=== PATIENT | female | born 1935 | race Caucasian/White ===

== ENCOUNTER → 2017-01-05 | Outpatient (CLI) | payer MEDICARE, OTHER ==
--- NOTE | 2017-01-05 12:00 | REP ---
RIGHT HIP SERIES: Two views of the right hip are performed. There is no acute fracture or dislocation. There is mild degenerative change in the form of mild joint space narrowing, subchondral sclerosis and spurring. IMPRESSION: Mild degenerative changes. Signed by Dipak Holley MD 01/05/2017 12:54 P
== END ==
LOC: M ADAMS 10:09
PROVIDERS: ATTEND Family Medicine
DX: M16.51 Unilateral post-traumatic osteoarthritis, right hip (principal); M25.551 Pain in right hip
CPT/HCPCS: 73502; G0463

== ENCOUNTER → 2017-04-30 | Outpatient (REF) | payer MEDICARE, OTHER ==
[2017-04-30 13:44] LABS: MEAN CORPUSCULAR HEMOGLOBIN 30.6 pg (27.0-33.0); MEAN CORPUSCULAR HGB CONC 32.8 g/dl (32.0-36.5); MEAN CORPUSCULAR VOLUME 93.1 fl (80.0-96.0); RED CELL DISTRIBUTION WIDTH 13.7 % (11.5-14.5); WHITE BLOOD COUNT 8.9 10^3/uL (4.0-10.0)
[2017-04-30 13:57] LABS: CALCIUM LEVEL 9.3 MG/DL (8.8-10.2); CREATININE FOR GFR 1.24 MG/DL (0.55-1.02); GLOMERULAR FILTRATION RATE 44.1 (>32); POTASSIUM SERUM 4.6 MEQ/L (3.5-5.1)
== END ==
LOC: M LABDRWAD 12:41
PROVIDERS: ATTEND Nurse Practitioner Family
DX: I10 Essential (primary) hypertension (principal); I48.2 Chronic atrial fibrillation

== ENCOUNTER 2017-08-16 19:19 | Emergency (ER) | payer MEDICARE, OTHER ==
[2017-08-16] MEDS: LIDOCAINE 4% CREAM 5GM (LMX4) TOP (23:01)
== END 2017-08-17 01:50 | disposition home or self-care (01) ==
LOC: M ED 08-17 01:50
DX: K56.41 Fecal impaction (principal); K64.4 Residual hemorrhoidal skin tags; I48.91 Unspecified atrial fibrillation; I10 Essential (primary) hypertension; J45.909 Unspecified asthma, uncomplicated; Z79.51 Long term (current) use of inhaled steroids; Z79.899 Other long term (current) drug therapy; Z88.8 Allergy status to other drugs, medicaments and biological substances; Z88.0 Allergy status to penicillin; Z98.890 Other specified postprocedural states
CPT/HCPCS: 99284

== ENCOUNTER → 2017-11-15 | Outpatient (REF) | payer MEDICARE, OTHER ==
[2017-11-15 12:42] LABS: BASO # 0.1 10^3/uL (0.0-0.2); BASO % 0.6 % (0.0-1.0); EOS # 0.4 10^3/uL (0.0-0.50); HEMATOCRIT 41.2 % (36.0-47.0); HEMOGLOBIN 13.4 g/dl (12.0-15.5); IMMATURE GRANULOCYTE % 0.3 % (0-3.0); LYMPH % 18.1 % (24.0-44.0); MEAN CORPUSCULAR HEMOGLOBIN 30.5 pg (27.0-33.0); MEAN CORPUSCULAR HGB CONC 32.5 g/dl (32.0-36.5); MEAN CORPUSCULAR VOLUME 93.8 fl (80.0-96.0); MONO % 8.6 % (0.0-5.0); NEUTROPHILS # 7.6 10^3/uL (1.8-7.7); NEUTROPHILS % 68.4 % (36.0-66.0); PLATELET COUNT, AUTOMATED 348 10^3/uL (150-450); RED BLOOD COUNT 4.39 10^6/uL (4.00-5.40); RED CELL DISTRIBUTION WIDTH 13.3 % (11.5-14.5)
== END ==
LOC: M LABDRWAD 12:22
DX: I48.2 Chronic atrial fibrillation (principal)
CPT/HCPCS: 85025

== ENCOUNTER → 2018-01-20 | Outpatient (REF) | payer MEDICARE, OTHER ==
[2018-01-20 13:01] LABS: ALBUMIN 3.7 GM/DL (3.2-5.2); ALBUMIN/GLOBULIN RATIO 1.12 (1.00-1.93); ALKALINE PHOSPHATASE 80 U/L (45-117); ALT/SGPT 21 U/L (12-78); ANION GAP 8 MEQ/L (8-16); AST/SGOT 14 U/L (7-37); BILIRUBIN,TOTAL 0.4 MG/DL (0.2-1.0); BLOOD UREA NITROGEN 25 MG/DL (7-18); CALCIUM LEVEL 8.9 MG/DL (8.8-10.2); CARBON DIOXIDE LEVEL 30 MEQ/L (21-32); CHLORIDE LEVEL 106 MEQ/L (98-107); CREATININE FOR GFR 1.31 MG/DL (0.55-1.30); GLOMERULAR FILTRATION RATE 41.4 (>32); GLUCOSE, FASTING 109 MG/DL (70-100); POTASSIUM SERUM 4.7 MEQ/L (3.5-5.1); SODIUM LEVEL 144 MEQ/L (136-145)
== END ==
LOC: M LAB REF 12:14
DX: I48.2 Chronic atrial fibrillation (principal)
CPT/HCPCS: 80053

== ENCOUNTER → 2018-05-03 | Outpatient (REF) | payer MEDICARE, OTHER ==
[2018-05-03 13:18] LABS: HEMATOCRIT 40.2 % (36.0-47.0); HEMOGLOBIN 13.3 g/dl (12.0-15.5); MEAN CORPUSCULAR HEMOGLOBIN 30.6 pg (27.0-33.0); MEAN CORPUSCULAR HGB CONC 33.1 g/dl (32.0-36.5); MEAN CORPUSCULAR VOLUME 92.6 fl (80.0-96.0); PLATELET COUNT, AUTOMATED 260 10^3/uL (150-450); RED BLOOD COUNT 4.34 10^6/uL (4.00-5.40); RED CELL DISTRIBUTION WIDTH 13.2 % (11.5-14.5); WHITE BLOOD COUNT 8.7 10^3/uL (4.0-10.0)
[2018-05-03 13:36] LABS: ALBUMIN 4.1 GM/DL (3.2-5.2); ALBUMIN/GLOBULIN RATIO 1.28 (1.00-1.93); ALKALINE PHOSPHATASE 73 U/L (45-117); ALT/SGPT 23 U/L (12-78); ANION GAP 9 MEQ/L (8-16); AST/SGOT 18 U/L (7-37); BILIRUBIN,TOTAL 0.4 MG/DL (0.2-1.0); BLOOD UREA NITROGEN 23 MG/DL (7-18); CALCIUM LEVEL 9.9 MG/DL (8.8-10.2); CARBON DIOXIDE LEVEL 29 MEQ/L (21-32); CHLORIDE LEVEL 103 MEQ/L (98-107); CHOLESTEROL LEVEL 172 MG/DL (<200); CREATININE FOR GFR 1.24 MG/DL (0.55-1.30); FREE T4 1.09 NG/DL (0.76-1.46); GLUCOSE, FASTING 96 MG/DL (70-100); HDL CHOLESTEROL 39 MG/DL (>40); LDL CHOLESTEROL 86 MG/DL (<100); NON-HDL-C 133 MG/DL; POTASSIUM SERUM 4.7 MEQ/L (3.5-5.1); SODIUM LEVEL 141 MEQ/L (136-145); TOTAL PROTEIN 7.3 GM/DL (6.4-8.2); TRIGLYCERIDES LEVEL 235 MG/DL (<150)
== END ==
LOC: M SFHCADAM 10:43
DX: I48.91 Unspecified atrial fibrillation (principal); E03.9 Hypothyroidism, unspecified; Z23 Encounter for immunization
CPT/HCPCS: 84443

== ENCOUNTER 2018-12-03 18:29 | Emergency (ER) | payer MEDICARE, OTHER ==
[~2018-12-03] VITALS: Ht 162.6 cm; Wt 113.0 kg
[~2018-12-03 18:29] MED LIST: BISO10TA13 PO; BUDE180INH; ELIQ5TAB PO; LEVO50TA5; MIRA3350 PO; PROC1AER16 PR; SPIR-10; TORS10TA3 PO; VITA-122 PO
[2018-12-03] MEDS ORDERED: ANUSOL HC 25MG SUPP PR ONE (20:30)
[2018-12-03] MEDS ORDERED: LIDOCAINE 4% CREAM 5GM (LMX4) TOP ONE (20:30)
[2018-12-03] MEDS ORDERED: FLEET OIL RETENTION ENEMA PR ONE (20:45)
[2018-12-03] MEDS ORDERED: MAGNESIUM CITRATE 300 ML BTL PO ONE (22:45)
[2018-12-03 23:15] VITALS: BP 136/69
[2018-12-03] MEDS ORDERED: LIDO1CRE2 TOP (23:35)
[2018-12-03] MEDS ORDERED: ANUS25SU PR (23:35)
== END 2018-12-04 00:44 | disposition home or self-care (01) ==
LOC: M ED 18:29
DX: K59.00 Constipation, unspecified (principal); K62.89 Other specified diseases of anus and rectum; E66.01 Morbid (severe) obesity due to excess calories; I10 Essential (primary) hypertension; J45.909 Unspecified asthma, uncomplicated; E03.9 Hypothyroidism, unspecified; Z79.01 Long term (current) use of anticoagulants; Z79.899 Other long term (current) drug therapy; Z88.0 Allergy status to penicillin; Z88.8 Allergy status to other drugs, medicaments and biological substances

== ENCOUNTER → 2018-12-29 | Outpatient (REF) | payer MEDICARE, OTHER ==
[~2018-12-29] MED LIST changes: +ANUS25SU PR; +LIDO1CRE2 TOP
[2018-12-29 14:22] LABS: FREE T4 1.14 NG/DL (0.76-1.46); THYROID STIMULATING HORMONE 3.78 uIU/ML (0.358-3.740)
== END ==
LOC: M SFHCADAM 10:29
PROVIDERS: ATTEND Family Medicine
DX: E03.9 Hypothyroidism, unspecified (principal)
CPT/HCPCS: 84439; 84443; G0463

== ENCOUNTER → 2019-06-02 | Outpatient (REF) | payer MEDICARE, OTHER ==
[2019-06-02 13:07] LABS: HEMATOCRIT 39.1 % (36.0-47.0); HEMOGLOBIN 12.2 g/dl (12.0-15.5); MEAN CORPUSCULAR HEMOGLOBIN 28.7 pg (27.0-33.0); MEAN CORPUSCULAR HGB CONC 31.2 g/dl (32.0-36.5); PLATELET COUNT, AUTOMATED 321 10^3/uL (150-450); RED BLOOD COUNT 4.25 10^6/uL (4.00-5.40); WHITE BLOOD COUNT 9.2 10^3/uL (4.0-10.0)
[2019-06-02 13:38] LABS: CALCIUM LEVEL 9.2 MG/DL (8.8-10.2); CHOLESTEROL RISK RATIO 3.926 (<5); CREATININE FOR GFR 1.48 MG/DL (0.55-1.30); GLOMERULAR FILTRATION RATE 35.8 (>32); POTASSIUM SERUM 5.3 MEQ/L (3.5-5.1)
== END ==
LOC: M LABDRWAD 12:50
PROVIDERS: ATTEND Physician Assistant
DX: I11.0 Hypertensive heart disease with heart failure (principal)

== ENCOUNTER → 2019-06-09 | Outpatient (REF) | payer MEDICARE, OTHER ==
[2019-06-09 12:31] LABS: HEMATOCRIT 38.7 % (36.0-47.0); HEMOGLOBIN 12.2 g/dl (12.0-15.5); MEAN CORPUSCULAR HGB CONC 31.5 g/dl (32.0-36.5); MEAN CORPUSCULAR VOLUME 92.1 fl (80.0-96.0); PLATELET COUNT, AUTOMATED 317 10^3/uL (150-450); WHITE BLOOD COUNT 9.6 10^3/uL (4.0-10.0)
[2019-06-09 12:45] LABS: ALBUMIN 3.4 GM/DL (3.2-5.2); BILIRUBIN,TOTAL 0.3 MG/DL (0.2-1.0); CHOLESTEROL RISK RATIO 3.904 (<5); CREATININE FOR GFR 1.4 MG/DL (0.55-1.30); FREE T4 0.88 NG/DL (0.76-1.46); GLOMERULAR FILTRATION RATE 38.1 (>32); POTASSIUM SERUM 4.6 MEQ/L (3.5-5.1); THYROID STIMULATING HORMONE 6.53 uIU/ML (0.358-3.740); TOTAL PROTEIN 7.2 GM/DL (6.4-8.2)
== END ==
LOC: M SFHCADAM 09:50
PROVIDERS: ATTEND Family Medicine
DX: I48.91 Unspecified atrial fibrillation (principal); E03.9 Hypothyroidism, unspecified

== ENCOUNTER 2019-10-15 23:46 | Inpatient (IN) | payer MEDICARE, OTHER ==
[~2019-10-15] VITALS: Ht 162.6 cm; Wt 111.5 kg
[~2019-10-15 23:46] MED LIST changes: -BUDE180INH; +BUDE180INH PO; -SPIR-10; +SPIR-10 PO
[2019-10-16] VITALS (20 sets, daily range): BP systolic 117–159; BP diastolic 56–91; O2SAT 98–99
[2019-10-16 00:19] LABS: BASO # 0.1 10^3/uL (0.0-0.2); BASO % 0.6 % (0.0-1.0); EOS # 0.2 10^3/uL (0.0-0.5); EOS % 1.5 % (0.0-3.0); HEMATOCRIT 38.8 % (36.0-47.0); HEMOGLOBIN 12.6 g/dl (12.0-15.5); LYMPH # 1.7 10^3/uL (1.5-5.0); LYMPH % 17.4 % (24.0-44.0); MEAN CORPUSCULAR HEMOGLOBIN 30.9 pg (27.0-33.0); MEAN CORPUSCULAR HGB CONC 32.5 g/dl (32.0-36.5); MEAN CORPUSCULAR VOLUME 95.1 fl (80.0-96.0); MONO # 0.7 10^3/uL (0.0-0.8); MONO % 7.6 % (0.0-5.0); NEUTROPHILS # 7.1 10^3/uL (1.5-8.5); NEUTROPHILS % 72.4 % (36.0-66.0); PLATELET COUNT, AUTOMATED 354 10^3/uL (150-450); RED BLOOD COUNT 4.08 10^6/uL (4.00-5.40); WHITE BLOOD COUNT 9.7 10^3/uL (4.0-10.0)
[2019-10-16 00:47] LABS: BLOOD UREA NITROGEN 38 MG/DL (7-18); CALCIUM LEVEL 9.4 MG/DL (8.8-10.2); CARBON DIOXIDE LEVEL 26 MEQ/L (21-32); CHLORIDE LEVEL 101 MEQ/L (98-107); CK-MB VALUE MASS < 1.0 NG/ML (<3.6); CPK CREATINE PHOSPHOKINASE 80 U/L (26-192); GLOMERULAR FILTRATION RATE 25.3 (>32); GLUCOSE, FASTING 134 MG/DL (70-100); MB/CK RELATIVE INDEX 1.25 (< OR =4); POTASSIUM SERUM 4.6 MEQ/L (3.5-5.1); SODIUM LEVEL 135 MEQ/L (136-145); TROPONIN I < 0.02 NG/ML (< 0.10)
[2019-10-16] MEDS ORDERED: NS 500 ML IV ONE (01:00)
[2019-10-16] MEDS ORDERED: NS 1,000 ML IV SCH (01:26)
[2019-10-16] MEDS ORDERED: ACETAMINOPHEN TAB 650MG DOSE (2X325MG) PO PRN (01:30)
[2019-10-16] MEDS ORDERED: MOM 30ML SUSPENSION UDC PO PRN (01:30)
[2019-10-16] MEDS ORDERED: MAALOX 30 ML SUSP *UDC PO PRN (01:30)
--- NOTE | 2019-10-16 01:33 | HPEPDOC ---
[facility] Medical History & Physical Date of Admission Oct 16, 2019 Date of Service: Oct 16, 2019 Primary Care Physician: Channing Blanco MD Attending Physician: Channing Blanco MD History and Physical TIME OF SERVICE: 2:10 AM CHIEF COMPLAINT: Dizzy HISTORY OF PRESENT ILLNESS: This is an 84-year-old female who presents with complaints of multiple episodes of feeling like she was "fading away" and dizzy. These episodes started about 12:10 in the afternoon on Wednesday and were associated with shortness of breath. She's never had these episodes before. She denied having chest pain, falling, or losing consciousness. She also denied having fevers, chills, nausea, vomiting or diarrhea. She denied any changes to the doses of her medications recently. She needed to eating less on Wednesday and Wednesday. She's been under a lot of stress because a lot of her work place related and recreational activities have been cancelled because of the recent concerns about the flu pandemic. REVIEW OF SYSTEMS: 12 point review of systems negative except as listed in HPI PAST MEDICAL/ SURGICAL HISTORY: Atrial fibrillation Hypothyroidism. ANT Chronic HTN Chronic Diastolic CHF / HFpEF CKD 3 Hemorrhoids Sigmoid Diverticulosis History of Vitamin D deficiency Cholecystectomy Appendectomy Hysterectomy 3 C-sections Excision of system bone from medial border of the interphalangeal joint of the right thumb and radial border of the proximal phalangeal joint of the right fourth digit SOCIAL HISTORY: She doesn't smoke. 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 Her mother lived to be 100 ALLERGIES: Please see below. HOME MEDICATIONS: Please see below. Vital Signs Date Time Temp Pulse Resp B/P (MAP) Pulse Ox O2 Delivery O2 Flow Rate FiO2 10/15/19 23:46 97.6 44 20 150/68 (95) 99 10/16/19 00:00 Room Air PHYSICAL EXAMINATION: GEN: well-nourished / well developed/ NAD INTEGUMENT: not flushed/ not jaundice / skin cool and dry HEENT: NCAT / mucus membranes moist and pink CVS: RRR/NMRG/ trace lower extremity edema LUNGS: able to speak full sentences without stopping to take a breath / no coughing / lungs are clear to auscultation bilaterally on room air ABDOMEN: Contour (obese) / soft & not tender with palpation NEURO: CN 2-12 are grossly intact / speech is not dysarthric PSYCH: alert and oriented to person place and time/ able to understand and follow all commands LABORATORY DATA: Immature Granulocyte % (Auto) 0.5, Neutrophils (%) (Auto) 72.4H, Lymphocytes (%) (Auto) 17.4L, Monocytes (%) (Auto) 7.6H, Eosinophils (%) (Auto) 1.5, Basophils (%) (Auto) 0.6, Neutrophils # (Auto) 7.1, Lymphocytes # (Auto) 1.7, Monocytes # (Auto) 0.7, Eosinophils # (Auto) 0.2, Basophils # (Auto) 0.1, Nucleated Red Blood Cells % (auto) 0.0, Anion Gap 8, Glomerular Filtration Rate 25.3L, Calcium Level 9.4, Total Creatine Kinase 80, Creatine Kinase MB < 1.0, Creatine Kinase MB Relative Index 1.25, Troponin I < 0.02 MICROBIOLOGY: Please see below. ASSESSMENT: Ms. Bajwa is an 84-year-old with a history of A. fib, hypothyroidism, ANT, HTN, CKD 3, and HFpEF who is admitted for evaluation of bradycardia and EMILIANA. PLAN: 1. Bradycardia Likely due to a build up of bisprolol caused by impaired renal excretion in the setting of EMILIANA Per Dr. Slaughter heart rate ranged from the 20s to 30s Her EKG showed atrial fibrillation with a heart rate of 39 and a QTC of 440. Her troponin, potassium and calcium were unremarkable. The half-life of bisprolol in those with normal renal function is not to 12 hours; due to her age and impaired renal function, the half-life is likely much longer Plan: We will admit her to the ICU/ will ask nursing staff to keep subcutaneous pacers at the bedside / atropine 0.5 mg IV PRN for HR <30/ check orthostatics once/ / fall precautions f/u serial trops /hold bisprolol 2. Acute Renal Failure on CKD 3 May be due to prerenal azotemia due to eating and drinking less over the last few days Her creatinine has increased to 2. In June 2019, it was 1.4. Her GFR has decreased to 25.3 from 38.1 Plan:f/u Is/Os, daily weights, UA, PTH, phosphorus, ulytes for FENa or FEUrea & renal ultrasound / IVF 3. Chronic Atrial fibrillation - apixaban/hold bisprolol 4. Hypothyroidism - levothyroxine 5. HFpEF / Chronic HTN - spironolactone and torsemide 6 . ANT - on CPAP 7. Obesity with BMI 41.8, and coexisting sleep apnea complicates care - follow- up A1c DVT PROPHYLAXIS: n/a bc she is on Apixaban DISPOSITION: Home after more than 2 midnight's stay Home Medications Scheduled Apixaban (Eliquis) 2.5 Mg Tablet, 2.5 MG PO BID Bisoprolol Fumarate (Bisoprolol Fumarate) 5 Mg Tablet, 5 MG PO DAILY Budesonide (Pulmicort Flexhaler) 120 Puff/Inhaler Aerp, 2 PUFFS PO BID Cholecalciferol (Vitamin D3) (Vitamin D3) 1,000 Unit Tablet, 1,000 UNITS PO DAILY Glucosa Cosme 2Kcl/Chondroitin Csome (Glucosamine & Chondroitin Cap) 1 Each Capsule, 1 EACH PO DAILY Levothyroxine Sodium (Synthroid) 75 Mcg Tablet, 75 MCG PO DAILY Spironolactone (Spironolactone) 25 Mg Tab, 25 MG PO DAILY Torsemide (Torsemide) 10 Mg Tab, 10 MG PO DAILY Scheduled PRN Polyethylene Glycol 3350 (Miralax) 119 Gm Powder, 17 GM PO DAILY PRN for CONSTIPATION dilute in 8 ounces of water or juice Allergies Coded Allergies: Penicillins (Verified Allergy, Unknown, 12/03/18) aspirin (Verified Allergy, Unknown, 12/03/18) A-FIB/CHADSVASC A-FIB History Current/History of A-Fib/PAF?: Yes Current PO Anticoag Therapy: Yes MARYJO FELDMAN MD Oct 16, 2019 01:33
[2019-10-16 01:45] LABS: MAGNESIUM LEVEL 2.3 MG/DL (1.8-2.4)
[2019-10-16] MEDS ORDERED: ATROPINE SULF 0.4 MG/ML 1ML VIAL (J0461) IV PRN (01:45)
[2019-10-16] MEDS ORDERED: ELIQ2.5T PO (02:06)
[2019-10-16] MEDS ORDERED: VITAD1000T PO (02:06)
[2019-10-16] MEDS ORDERED: MIRA3350 PO (02:06)
[2019-10-16] MEDS ORDERED: BISO5TAB14 PO (02:06)
[2019-10-16] MEDS ORDERED: GLUC500C37 PO (02:06)
[2019-10-16] MEDS ORDERED: SYNT75TA PO (02:06)
[2019-10-16] MEDS ORDERED: ATROPINE SULF 1MG/10ML SYRINGE (J0461) IV PRN (02:28)
[2019-10-16] MEDS ORDERED: MIRALAX *UNIT DOSE* 17GM PACKET PO PRN (02:45)
[2019-10-16 05:11] LABS: HEMOGLOBIN A1c 6.1 %
[2019-10-16 05:17] LABS: CK-MB VALUE MASS < 1.0 NG/ML (<3.6); CPK CREATINE PHOSPHOKINASE 72 U/L (26-192); MB/CK RELATIVE INDEX 1.39 (< OR =4); TROPONIN I 0.02 NG/ML (< 0.10)
[2019-10-16] MEDS ORDERED: PREVNAR 13 VACCINE SYRINGE (CPT CODE:90670) IM SCH (06:00)
[2019-10-16] MEDS: VITAMIN D 1,000 INTERNATIONAL UNITS TABLET PO SCH (08:40)
[2019-10-16] MEDS: SPIRONOLACTONE 25 MG TAB PO SCH ×2 (08:40→10:27)
[2019-10-16] MEDS: LEVOTHYROXINE 75MCG TABLET (0.075MG) PO SCH (08:40)
[2019-10-16] MEDS ORDERED: TORSEMIDE 10 MG TABLET PO SCH (09:00)
[2019-10-16] MEDS ORDERED: APIXABAN 2.5 MG TAB (ELIQUIS) PO SCH (09:00)
[2019-10-16 09:30] LABS: PTH INTACT 94.1 PG/ML (18.5-88.0)
--- NOTE | 2019-10-16 09:41 | REP ---
Urinary tract sonography: History: Acute renal insufficiency. Findings: Renal cortical echogenicity pattern is normal and contours are smooth. There is no evidence of hydronephrosis on either side. Scan quality is somewhat inhibited due to bowel gas and patient body habitus. There are two cysts in the upper pole left kidney measuring 1.5 and 1.4 cm in greatest diameter respectively. There is a cyst in the lower pole on the right measuring 1.8 cm. Another peripelvic cyst is seen in the right mid kidney measuring 2.0 cm in greatest diameter. No abnormalities noted in the urinary bladder. Right renal dimensions are 9.9 x 7.0 x 5.0 cm. Left kidney measures 9.6 x 5.3 x 6.1 cm. Impression: Small bilateral renal cysts. Otherwise negative urinary tract sonography. Electronically Signed by Ra Raphael MD 10/16/2019 09:32 A
--- NOTE | 2019-10-16 10:22 | IPNPDOC ---
Subjective Date Seen The patient was seen on 10/16/19. Subjective Chief Complaint/HPI Nunu this morning states that she is doing alright. She feels tired. She has no new concerns. She states that she HR since admission has ranged from 30s- 140s. Aside from fatigue she hasn't has symptoms, even with the range of her HR. General: Reports: Fatigue Constitutional: Denies: Chills, Fever ENT: Denies: Head Aches Pulmonary: Denies: Dyspnea, Cough Cardiovascular: Denies: Chest Pain, Palpitations Gastrointestinal: Denies: Nausea, Vomiting, Diarrhea Neurological: Denies: Weakness Psych: Reports: Mood Normal Objective Physical Examination General Exam: Positive: Alert, No Acute Distress ENT Exam: Positive: Mucous membr. moist/pink Neck Exam: Positive: Supple, JVD Chest Exam: Positive: Clear to auscultation, Diminished (at bases, likely due to body habitus and position) Heart Exam: Positive: Bradycardic (30s on ausculation although while I was in the room, her HR ranged from 30-100s on tele. ) Abdomen Exam: Positive: Normal bowel sounds, Soft; Negative: Tenderness Extremity Exam: Negative: Edema Neuro Exam: Positive: Normal Speech Psych Exam: Positive: Mental status NL, Mood NL Assessment /Plan Problems (1) Sick sinus syndrome Status: Acute Problem Text: 10/16 afternoon planned single chamber pacer-Antecol (2) Atrial fibrillation Status: Chronic Problem Text: on bisoprolol as outpt, this has been held for bradycardia, she follows with [facility], will consult Cardio for further mgmt. (3) Acute renal failure superimposed on stage 3 chronic kidney disease Status: Acute Problem Specific Plan: Monitor Clinically Problem Text: baseline cr 1.4 10/15 38/2.0; received HD mimi 25, torse 10 last Sat 3/14 AM (4) ANT on CPAP Status: Chronic Response to Treatment: Stable Problem Specific Plan: Monitor Clinically (5) Morbid obesity Status: Chronic Response to Treatment: Stable Problem Text: Complicates her recovery. (6) HTN (hypertension) Status: Chronic Response to Treatment: Stable (7) Hypothyroid Status: Chronic Problem Text: 06/2019 6.5/0.9 on LT4 75 Plan/VTE VTE Prophylaxis Ordered?: Yes VS, I&O, 24H, Fishbone Vital Signs/I&O Vital Signs Date Time Temp Pulse Resp B/P (MAP) Pulse Ox O2 Delivery O2 Flow Rate FiO2 10/16/19 06:00 31 18 124/56 (78) 98 Room Air 10/16/19 04:00 96.6 I&O- Last 24 Hours up to 6 AM 10/16/19 06:00 Intake Total 895 ml Output Total 250 ml Balance 645 ml Laboratory Data 24H LABS Laboratory Tests 2 10/16/19 00:09: Immature Granulocyte % (Auto) 0.5, Neutrophils (%) (Auto) 72.4H, Lymphocytes (%) (Auto) 17.4L, Monocytes (%) (Auto) 7.6H, Eosinophils (%) (Auto) 1.5, Basophils (%) (Auto) 0.6, Neutrophils # (Auto) 7.1, Lymphocytes # (Auto) 1.7, Monocytes # (Auto) 0.7, Eosinophils # (Auto) 0.2, Basophils # (Auto) 0.1, Nucleated Red Blood Cells % (auto) 0.0, Anion Gap 8, Glomerular Filtration Rate 25.3L, Calcium Level 9.4, Magnesium Level 2.3, Total Creatine Kinase 80, Creatine Kinase MB < 1.0, Creatine Kinase MB Relative Index 1.25, Troponin I < 0.02, Parathyroid Hormone (Intact) 94.1H 10/16/19 04:29: Total Creatine Kinase 72, Creatine Kinase MB < 1.0, Creatine Kinase MB Relative Index 1.39, Troponin I 0.02, Estimated Mean Plasma Glucose 128H, Hemoglobin A1c 6.1 CBC/BMP Laboratory Tests 10/16/19 00:09 MARIBELL GOMEZ PA-C Oct 16, 2019 10:22 Darron Delong M.D. Oct 16, 2019 15:51
[2019-10-16 12:44] LABS: CK-MB VALUE MASS < 1.0 NG/ML (<3.6); CPK CREATINE PHOSPHOKINASE 93 U/L (26-192); MB/CK RELATIVE INDEX 1.08 (< OR =4); TROPONIN I 0.02 NG/ML (< 0.10)
[2019-10-16] MEDS: NS 1,000 ML IV SCH (16:25)
--- NOTE | 2019-10-16 17:23 | CR ---
DATE OF CONSULTATION: 10/16/2019 REFERRING INDIVIDUAL: Neeru Yarbroughcea, Physician Power Washer REASON FOR CONSULTATION: Tachycardia, bradycardia syndrome, chronic atrial fibrillation. HISTORY OF PRESENT ILLNESS: Nunu Bajwa is a very pleasant 84-year-old woman with chronic atrial fibrillation, systemic hypertension, right bundle branch block, hypertensive heart disease with congestive heart failure (CHF), and chronic diastolic heart failure. Beginning yesterday she has been having recurrent episodes of presyncope (no syncope). No palpitations. No exertional shortness of breath. No orthopnea or paroxysmal nocturnal dyspnea (PND). No leg or ankle swelling. No embolic events. No intermittent claudication. Echocardiogram Doppler 03/08/2018 showed mild concentric left ventricular hypertrophy (LVH) with normal left ventricular (LV) wall motion. Prominently dilated left atrium and suggestive of at least mild increased mean left atrial pressure. Normal right ventricular (RV) size and systolic function. Suggestive of moderate pulmonary hypertension. Mildly dilated inferior vena cava with reduced respiratory variation suggestive of elevated central venous pressure (CVP). Moderate aortic valve sclerosis without stenosis. Very mild aortic regurgitation. Moderate mitral annular calcification with suspected moderately-severe mitral regurgitation. Mild tricuspid regurgitation. Pulmonary artery systolic pressure estimated to be 45 mmHg. Estimated right ventricle systolic pressure 38 mmHg. ADVERSE DRUG REACTIONS: PENICILLINS, ASPIRIN. MEDICATIONS PRIOR TO ADMISSION: - Eliquis 2.5 mg twice a day - bisoprolol 5 mg daily - Pulmicort two puffs twice a day - vitamin D3 1000 units daily - glucosamine and chondroitin one by mouth daily - Synthroid 75 mcg daily - MiraLAX daily as needed for constipation - spironolactone 25 mg daily - torsemide 10 mg daily OTHER PAST MEDICAL AND SURGICAL HISTORY: Chronic atrial fibrillation. Right bundle branch block. Systemic hypertension. Mitral annular calcification with moderately-severe mitral regurgitation. Aortic valve sclerosis with very mild aortic regurgitation. Hypertensive heart disease with CHF. Chronic diastolic heart failure. Morbid obesity. Obstructive sleep apnea, on CPAP (followed by Dr. Ramiro Petty). Bronchial asthma. Hypothyroidism. Chronic kidney disease, stage III. Hemorrhoids. Sigmoid diverticulosis. Vitamin D deficiency. Status post cholecystectomy. Status post appendectomy. Status post hysterectomy. Status post section times three. Status post excision of bone from the medial border of the interphalangeal joint of the right thumb and radial border of the proximal pharyngeal joint of the right 4th digit. 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 Nonsmoker. Lives independently in a dwelling connected to one of her children's homes. FAMILY HISTORY: Father lived to age 97, mother lived to age 100. REVIEW OF SYSTEMS: 12-point review of systems as per history of the present illness above, otherwise negative. No anxiety, panic attacks, or depression. PHYSICAL EXAMINATION: Temperature 97.1, pulse 38 (irregularly irregular), respiratory rate 20, blood pressure 117/59, oxygen (O2) saturation 98% on room air. Height 64 inches, weight 110.1 kg, body mass index (BMI) 41.7. No conjunctival pallor, scleral icterus, or xanthomas. Upper and lower dentures present. Oral mucosa moist and without pallor or cyanosis. Jugular venous pulsations were at 3 cm. Trachea midline. No palpable thyroid. No clubbing, nail bed cyanosis, or splinter hemorrhages. No skin lesions, skin pallor, or icterus. Oriented to person, place and time. Mood and affect normal. Curvature of the spine normal. Gait not tested as the patient is currently on bed rest. Gross motor strength and tone normal. No abnormal muscle atrophy, fasciculations or tremors. Respiratory expansion and effort was good. No dullness to percussion. No crackles or wheezes. Grade I pansystolic murmur at the apex. First heart sound variable intensity. Second heart sound normal. No S3. Carotids are normal in volume and contour and without bruits. No palpable abdominal aorta. No abdominal bruits. Femoral pulses difficult to palpate due to morbid obesity. Pedal pulses normal. No peripheral edema. No varicose veins. Abdomen was obese, soft, nontender with normal bowel sounds. No hepatosplenomegaly or other organomegaly. Liver span difficult to assess due to abdominal obesity. Stool for occult blood not presently indicated. Renal ultrasound 10/16/2019 reported small bilateral renal cysts. Otherwise negative urinary tract sonography. Electrocardiogram 10/16/2019 at 1:23 a.m. shows atrial fibrillation with slow ventricular response, 39 beats per minute, right bundle branch block with low precordial voltages, indeterminate QRS axis. LABORATORY: Laboratory work 10/16/2019 was reviewed: WBC 9.7, hemoglobin 12.2, hematocrit 38.8, platelets 354. Sodium 135, potassium 4.6, chloride 101, CO2 26, BUN 38, creatinine 2.00, estimated GFR 25.3, glucose 134, magnesium 2.3, calcium 9.4, CPK 80, CPK-MB less than 1.0, troponin I less than 0.02. ASSESSMENT AND PLAN: 1. Sick sinus syndrome/tachycardia-bradycardia syndrome. This patient has longstanding chronic atrial fibrillation. She has been maintained on a low dose of bisoprolol, which has now been held. Despite the bisoprolol being held, she has evidence of tachycardia-bradycardia syndrome with some documented pauses today of 7.5 seconds and longer. She has been symptomatic with presyncope. At other times she goes into rapid ventricular response. She meets criteria for implantation of a single-chamber pacemaker. The option of no pacemaker and its potential for syncope was explained to the patient. The option of implantation of a permanent single-chamber pacemaker was explained to the patient to permit better management of tachycardia-bradycardia syndrome was explained to the patient. Tachycardia-bradycardia syndrome was explained to the patient. Risks of pacemaker implantation were explained to the patient including, but not all inclusive, bleeding (1%), infection (1%), pneumothorax (1%), adverse drug reaction, cardiac dysrhythmias, and cardiac perforation with cardiac tamponade (09/999). Patient was agreeable and signed the consent form. The plan will be to proceed with a permanent pacemaker implant tomorrow. In the meantime, Eliquis will be held. 2. Chronic atrial fibrillation. As noted above, the patient has tachycardia-bradycardia syndrome. She will undergo implantation of a permanent single-chamber pacemaker tomorrow. At the moment, beta claire is on hold, and this will be restarted once the patient has had a pacemaker implanted. Eliquis is presently on hold until after the patient has had a pacemaker. 3. Systemic hypertension. Blood pressures in the hospital are presently controlled. Beta claire is on hold while she awaits implantation of a permanent pacemaker. She is otherwise currently maintained on torsemide and spironolactone. 4. Right bundle branch block (chronic). As noted above, she will undergo implantation of a permanent pacemaker tomorrow. 5. Hypertensive heart disease with congestive heart failure. Presently compensated. Chronically maintained on spironolactone and torsemide. No changes. 6. Diastolic heart failure. Currently compensated on torsemide and spironolactone. Continue the same. 7. Moderate mitral annular calcification with moderately severe mitral regurgitation. Stable.
[2019-10-17] VITALS (19 sets, daily range): BP systolic 107–169; BP diastolic 49–92
[2019-10-17 04:45] LABS: HEMATOCRIT 34.8 % (36.0-47.0); HEMOGLOBIN 11.4 g/dl (12.0-15.5); MEAN CORPUSCULAR HEMOGLOBIN 30.9 pg (27.0-33.0); MEAN CORPUSCULAR HGB CONC 32.8 g/dl (32.0-36.5); MEAN CORPUSCULAR VOLUME 94.3 fl (80.0-96.0); PLATELET COUNT, AUTOMATED 275 10^3/uL (150-450); RED BLOOD COUNT 3.69 10^6/uL (4.00-5.40); WHITE BLOOD COUNT 10.9 10^3/uL (4.0-10.0)
[2019-10-17] MEDS: NS 1,000 ML IV SCH (04:58)
[2019-10-17 05:07] LABS: CALCIUM LEVEL 8.7 MG/DL (8.8-10.2); CREATININE FOR GFR 1.5 MG/DL (0.55-1.30); GLOMERULAR FILTRATION RATE 35.2 (>32); POTASSIUM SERUM 4.5 MEQ/L (3.5-5.1)
[2019-10-17] MEDS: VITAMIN D 1,000 INTERNATIONAL UNITS TABLET PO SCH (09:00)
[2019-10-17] MEDS: LEVOTHYROXINE 75MCG TABLET (0.075MG) PO SCH (09:00)
[2019-10-17] MEDS: SPIRONOLACTONE 25 MG TAB PO SCH (09:00)
[2019-10-17] MEDS ORDERED: LIDOCAINE 1% SDV INJ 30 ML VIAL As Ordered ONE (13:53)
[2019-10-17] MEDS ORDERED: VANCOMYCIN 1000 MG/20 ML VIAL (J3370) As Ordered ONE (13:54)
[2019-10-17] MEDS ORDERED: ISOVUE-300 61% 50ML VIAL (Q9967) As Ordered ONE (13:54)
[2019-10-17] MEDS ORDERED: MUPIROCIN 2% OINT 22 GM TUBE As Ordered ONE (14:00)
[2019-10-17] MEDS ORDERED: BUPIVACAINE/EPIN 0.25% 30 ML VIAL As Ordered ONE (14:06)
[2019-10-17] MEDS ORDERED: VANCOMYCIN HCL 1,000 MG, VIAL MATE ADAPTER 1 EACH in D5W 250 ML IV ONE (15:00)
[2019-10-17] MEDS ORDERED: MIDAZOLAM INJ 2 MG/2 ML VIAL (J2250) As Ordered ONE (15:44)
[2019-10-17] MEDS ORDERED: ONDANSETRON 4MG/2ML VIAL (J2405) As Ordered ONE (16:34)
[2019-10-17] MEDS ORDERED: ONDANSETRON 4MG/2ML VIAL (J2405) IV PRN (17:45)
[2019-10-17] MEDS ORDERED: fentaNYL 100 MCG/2 ML INJECTION (J3010) IV PRN (17:45)
--- NOTE | 2019-10-17 17:55 | REP ---
HISTORY: Spot view of the chest obtained in my [place] using a portable C-Arm device during single chamber bipolar pacemaker device placement. The single chamber bipolar pacemaker lead appears contiguous and appropriate. 3 minutes [address] Dirk Smith for the procedure. Electronically Signed by Jude Avila DO 10/17/2019 05:59 P
--- NOTE | 2019-10-17 18:08 | IPNPDOC ---
Subjective Date Seen The patient was seen on 10/17/19. Subjective Chief Complaint/HPI no chest pain, dyspnea Constitutional: Denies: Chills ENT: Denies: Head Aches Skin: Denies: Rash Pulmonary: Denies: Dyspnea, Cough Cardiovascular: Denies: Chest Pain, Palpitations Gastrointestinal: Denies: Nausea, Vomiting Genitourinary: Denies: Dysuria Objective Physical Examination General Exam: Positive: Alert, No Acute Distress ENT Exam: Positive: Mucous membr. moist/pink Neck Exam: Positive: Supple, JVD Chest Exam: Positive: Clear to auscultation, Diminished (at bases, likely due to body habitus and position) Heart Exam: Positive: Bradycardic (30s on ausculation although while I was in the room, her HR ranged from 30-100s on tele. ) Abdomen Exam: Positive: Normal bowel sounds, Soft; Negative: Tenderness Extremity Exam: Negative: Edema Neuro Exam: Positive: Normal Speech Psych Exam: Positive: Mental status NL, Mood NL Assessment /Plan Problems (1) Sick sinus syndrome Status: Acute Problem Text: POD0 single chamber pacer-Antecol (2) Atrial fibrillation Status: Chronic Problem Text: on bisoprolol as outpt, this has been held for bradycardia, she follows with [facility], will consult Cardio for further mgmt. (3) Acute renal failure superimposed on stage 3 chronic kidney disease Status: Acute Problem Specific Plan: Monitor Clinically Problem Text: baseline cr 1.4 10/16 34/1.5, 4.5 10/15 38/2.0; received HD mimi 25, torse 10 last Sat 3/14 AM (4) ANT on CPAP Status: Chronic Response to Treatment: Stable Problem Specific Plan: Monitor Clinically (5) Morbid obesity Status: Chronic Response to Treatment: Stable Problem Text: Complicates her recovery. (6) HTN (hypertension) Status: Chronic Response to Treatment: Stable Problem Text: on biso 2.5 QHS, torse 10 qAM (7) Hypothyroid Status: Chronic Problem Text: 06/2019 6.5/0.9 on LT4 75 (8) Physical deconditioning Status: Chronic Problem Text: plan to advance PT in 1-2D Plan/VTE VTE Prophylaxis Ordered?: Yes VS, I&O, 24H, Fishbone Vital Signs/I&O Vital Signs Date Time Temp Pulse Resp B/P (MAP) Pulse Ox O2 Delivery O2 Flow Rate FiO2 10/17/19 17:39 96.9 98 18 142/67 (92) 95 Nasal Cannula 2 I&O- Last 24 Hours up to 6 AM 10/17/19 05:59 Intake Total 2600 ml Output Total 0 ml Balance 2600 ml Laboratory Data 24H LABS Laboratory Tests 2 10/17/19 04:31: Nucleated Red Blood Cells % (auto) 0.0, Anion Gap 5L, Glomerular Filtration Rate 35.2, Calcium Level 8.7L CBC/BMP Laboratory Tests 10/17/19 04:31 Darron Delong M.D. Oct 17, 2019 18:08
--- NOTE | 2019-10-17 18:27 | REP ---
HISTORY: Status post pacemaker insertion. COMPARISON: Preprocedure examination of 11/27/2014. The technique utilized in obtaining the radiograph has magnified the cardiac silhouette and accentuated the interstitial markings. There is global cardiomegaly accentuated by technique. There is a single chamber bipolar pacemaker device in place, the lead appears contiguous and appropriate. The lung molina are unchanged from the prior exam with the interstitial markings accentuated by technique. There is no change in the osseous structures. IMPRESSION: No acute disease. Findings as described above. Electronically Signed by Jude Avila DO 10/17/2019 07:00 P
--- NOTE | 2019-10-17 19:29 | RO ---
DATE OF PROCEDURE: 10/17/2019 PREPROCEDURE DIAGNOSIS: Sick sinus syndrome/tachycardia-bradycardia syndrome. POSTPROCEDURE DIAGNOSIS: Sick sinus syndrome/tachycardia-bradycardia syndrome. FINDINGS: Sick sinus syndrome/tachycardia-bradycardia syndrome. PROCEDURE PERFORMED: Implantation of a single-chamber permanent pacemaker ([employer]). SURGEON: Dirk Smith MD WORKING MANAGER: None. ANESTHESIA: Lidocaine 1% local/monitored anesthetic care. SPECIMENS. None. ESTIMATED BLOOD LOSS: Less than 20 mL. No blood products replaced. No drains. No complications. DESCRIPTION OF PROCEDURE: The patient was prepped and draped over the left pectoral region and 3M Ioban film was applied. Lidocaine 1% was used for local anesthetic. A left subclavian venogram was performed using a total volume of 20 mL consisting of a mixture of five parts contrast to one part normal saline, which was injected via a peripheral IV in the left upper extremity. This was used under fluoroscopic guidance in real time to assist with percutaneous access with a micropuncture needle to the extrathoracic portion of the left subclavian vein. This was then guidewire exchanged for a guidewire that came with the #8-American sheath. Next, an incision was made through the skin using a PEAK PlasmaBlade approximately 2-1/2 to 3 inches in length, 1 cm below the skin entry site of the guidewire and approximately parallel to the left clavicle. The PEAK PlasmaBlade was used to dissect through the fatty layer and through the fibrous Camille's fascia. I then formed the pacemaker pocket in a caudal direction using blunt dissection using two fingers to separate the prepectoral fascia from the Camille's fascia. Next, the guidewire was pulled through the skin into the incision site. Next, an #8-American peel-away sheath with introducer was placed over the guidewire and advanced into the left subclavian vein. This was used for vein access for the right ventricle lead. The right ventricle lead was placed under fluoroscopic guidance into the right ventricle apex position where it was secured with a total of 10 turns. This position was found to be electrically and anatomically satisfactory and no diaphragm stimulation could be palpated on either side at 10 volts high output pacing. The #8-American sheath was then broken apart and peeled away. The ventricular lead was then secured to the pectoral muscle using the supplied tie-down sleeve using two individual sutures consisting of #0 Ethibond to secure it to the pectoral muscle. The #0 Ethibond suture was then used to serve as the tie-down of the pacemaker pulse generator by placing an additional knot into the pectoral muscle. Next, the terminal pin of the pacemaker lead was placed into the header of the pacemaker pulse generator and was secured by tightening the set screw with the hex screwdriver. The excess lead material was then placed underneath the pacemaker pulse generator and was placed into the pacemaker pocket with the excess lead material below and pacemaker pulse generator on top. Just before placing the pacemaker into the pacemaker pocket, I took a medium size TYRX envelope and cut it into six pieces, which were placed into the floor of the pacemaker pocket. The deep layer of the pacemaker incision was then closed using individual sutures consisting of #2-0 Vicryl. A few additional #2-0 Vicryl sutures were used to help approximate the more superficial layer. The skin was then closed using stapes. Following application of sreedhar, Bactroban ointment was applied, followed by Telfa, followed by sterile gauze, followed by Bio-occlusive dressing, followed by a pressure dressing and then a left arm sling before patient left the operating room. Patient tolerated the procedure well without any immediate complications. The pacemaker pulse generator implanted was a [employer] Assurity MRI with model #[id number] with serial #[id number]. The ventricular lead implanted was a [employer] Tendril MRI with model #[id number], which was 52 cm in length and had serial #[id number]. The PSA analyzer data for the right ventricle lead showed a capture threshold in bipolar configuration of 0.4 volts at 0.4 milliseconds with R wave amplitude of 12.5 millivolts and a lead impedance of 532 ohms.
[2019-10-17] MEDS: BISOPROLOL FUM 2.5 MG PER 1/2TAB PO SCH (20:19)
[2019-10-18] VITALS (7 sets, daily range): BP systolic 92–159; BP diastolic 54–85
[2019-10-18 04:23] LABS: BASO # 0.1 10^3/uL (0.0-0.2); BASO % 0.6 % (0.0-1.0); EOS # 0.3 10^3/uL (0.0-0.5); EOS % 3.1 % (0.0-3.0); HEMATOCRIT 35.9 % (36.0-47.0); HEMOGLOBIN 11.8 g/dl (12.0-15.5); LYMPH # 0.9 10^3/uL (1.5-5.0); LYMPH % 8.8 % (24.0-44.0); MEAN CORPUSCULAR HEMOGLOBIN 31.2 pg (27.0-33.0); MEAN CORPUSCULAR HGB CONC 32.9 g/dl (32.0-36.5); MONO # 0.4 10^3/uL (0.0-0.8); NEUTROPHILS # 8.7 10^3/uL (1.5-8.5); NEUTROPHILS % 82.8 % (36.0-66.0); PLATELET COUNT, AUTOMATED 250 10^3/uL (150-450); RED BLOOD COUNT 3.78 10^6/uL (4.00-5.40); WHITE BLOOD COUNT 10.5 10^3/uL (4.0-10.0)
[2019-10-18 04:41] LABS: ALBUMIN 2.8 GM/DL (3.2-5.2); BILIRUBIN,TOTAL 0.4 MG/DL (0.2-1.0); CALCIUM LEVEL 8.4 MG/DL (8.8-10.2); CREATININE FOR GFR 1.34 MG/DL (0.55-1.30); GLOMERULAR FILTRATION RATE 40.1 (>32); POTASSIUM SERUM 4.3 MEQ/L (3.5-5.1); TOTAL PROTEIN 7.2 GM/DL (6.4-8.2)
--- NOTE | 2019-10-18 08:07 | REP ---
Chest x-ray: Two views. History: Pacemaker placement. Comparison study: October 17, 2019. Findings: Monitoring electrodes and oxygen delivery tubing are seen. A unipolar pacemaker is seen in the right heart via the left side. There are adjacent some clavicular surgical clips. The heart is enlarged as before. There is linear scarring in the left perihilar region unchanged. There is no evidence of pneumothorax or hydrothorax. Electronically Signed by Ra Raphael MD 10/18/2019 07:57 A
--- NOTE | 2019-10-18 08:37 | IPN ---
DATE: 10/18/2019 Nunu is status post pacemaker. Her pacemaker is functioning well. She feels well, getting out of bed. Pressures were a little low overnight and she has required some supplemental oxygen this morning. PHYSICAL EXAMINATION: Blood pressure 106/60, pulse of 90, respiratory rate 18, 97% oxygen saturation on 2 liters. General appearance: Alert and conversant in no distress. Lungs clear. Heart regular rhythm. Abdomen soft, nontender. No peripheral edema. LABORATORIES: White count 10.5, hemoglobin 11.8, platelets 250. Sodium 138, potassium 4.3, BUN 24, creatinine 1.3. IMPRESSION: 1. Sick sinus syndrome status post single chamber pacemaker by Dr. Smith on 10/15. 2. Atrial fibrillation. Rate controlled with bisoprolol and pacemaker. 3. Acute renal failure superimposed on chronic kidney disease. Renal function is back to baseline. 4. Hypertension. Her blood pressure is a little low today. Continue her current medications. We might need to keep her for another day. 5. Hypoxemia. Will try to wean her oxygen. The patient is in ICU but being transferred to PCU. Hopefully discharge later today or if not today, then tomorrow.
[2019-10-18] MEDS: VITAMIN D 1,000 INTERNATIONAL UNITS TABLET PO SCH (08:44)
[2019-10-18] MEDS: SPIRONOLACTONE 25 MG TAB PO SCH (08:47)
[2019-10-18] MEDS: BISOPROLOL FUM 2.5 MG PER 1/2TAB PO SCH (08:47)
[2019-10-18] MEDS: LEVOTHYROXINE 75MCG TABLET (0.075MG) PO SCH (08:48)
[2019-10-18] MEDS ORDERED: TORSEMIDE 10 MG TABLET PO SCH (09:00)
[2019-10-18] MEDS ORDERED: APIXABAN 2.5 MG TAB (ELIQUIS) PO SCH (09:00)
[2019-10-18 09:51] LABS: MAGNESIUM LEVEL 2.1 MG/DL (1.8-2.4)
[2019-10-18] MEDS ORDERED: bisoproloL fumarate 5 MG TAB PO SCH (10:30)
[2019-10-18] MEDS ORDERED: BISOPROLOL FUM 2.5 MG PER 1/2TAB PO ONE (12:00)
--- NOTE | 2019-10-18 12:01 | ECGEPIP ---
[facility] - ED Test Date: 2019-10-16 Pat Name: SAMANTHA VILLAGRAN Department: Room: [place] [address] Gender: Female Computer Aided Design Technician: IRINA : 1935 Requested By: NIA Ferreira Order Number: [id number] Reading MD: Luke Rojas Measurements Intervals [place] Rate: 49 P: [place]: 0 QRS: -12 QRSD: 150 T: 5 QT: 477 QTc: 434 Interpretive Statements SINUS ARREST WITH VENTRICULAR ESCAPE RHYTHM RIGHT BUNDLE BRANCH BLOCK Electronically Signed on 10-18-2019 12:01:48 EDT by Luke Rojas
--- NOTE | 2019-10-18 12:05 | ECGEPIP ---
[facility] - ED Test Date: 2019-10-16 Pat Name: SAMANTHA VILLAGRAN Department: Room: [place] [address] Gender: Female [employer] Director: IRINA : 1935 Requested By: NIA Ferreira Order Number: [id number] Reading MD: Luke Rojas Measurements Intervals [place] Rate: 39 P: [place]: 0 QRS: -27 QRSD: 147 T: -17 QT: 514 QTc: 416 Interpretive Statements SINUS ARREST WITH VENTRICULAR ESCAPE RHYTHM VS ATRIAL FIBRILLATION WITH SLOW VENTRICULAR RESPONSE RIGHT BUNDLE BRANCH BLOCK SIMILAR TO PRIOR ON SAME DATE Electronically Signed on 10-18-2019 12:05:05 EDT by Luke Rojas
[2019-10-18] MEDS ORDERED: ASCORBIC ACID 250 MG TAB PO SCH (21:00)
[2019-10-19] MEDS ORDERED: bisoproloL fumarate 5 MG TAB PO SCH (09:00)
--- NOTE | 2019-10-19 18:45 | ECGEPIP ---
[facility] Test Date: 2019-10-17 Pat Name: SAMANTHA VILLAGRAN Department: Room: [place] [address] Gender: Female Clerical Order Filler: CHARLOTTE : 1935 Requested By: Dirk Smith Order Number: [id number] Reading MD: Segundo Masterson Measurements Intervals [place] Rate: 83 P: [place]: 0 QRS: -12 QRSD: 148 T: -22 QT: 403 QTc: 475 Interpretive Statements ATRIAL FIBRILLATION RIGHT BUNDLE BRANCH BLOCK Non specific ST/T abnormality Compared to prior tracings(2) in the system, heart rate was markedly slow Electronically Signed on 10-19-2019 18:44:53 EDT by Segundo Masterson
== END 2019-10-18 16:45 | disposition home or self-care (01) | DRG 243 ==
LOC: M ED 23:46 → M ED INP 10-16 01:33 → ENRESERVDT 10-16 01:56 → ENRESERVTM 10-16 01:56 → M ICU 10-16 02:23
PROVIDERS: ADMIT Internal Medicine; ATTEND Family Medicine
PROC: 02HK0JZ Insertion of Pacemaker Lead into Right Ventricle, Open Approach (ICD-10-PCS; 2019-10-17)
PROC: 0JH604Z Insertion of Pacemaker, Single Chamber into Chest Subcutaneous Tissue and Fascia, Open Approach (ICD-10-PCS; principal; 2019-10-17 14:30)
DX: I49.5 Sick sinus syndrome (principal); Z68.41 Body mass index [BMI] 40.0-44.9, adult; N17.9 Acute kidney failure, unspecified; I48.20 Chronic atrial fibrillation, unspecified; I50.32 Chronic diastolic (congestive) heart failure; E66.01 Morbid (severe) obesity due to excess calories; N18.3 Chronic kidney disease, stage 3 (moderate); G47.33 Obstructive sleep apnea (adult) (pediatric); K57.30 Diverticulosis of large intestine without perforation or abscess without bleeding; E03.9 Hypothyroidism, unspecified; I11.0 Hypertensive heart disease with heart failure; K64.8 Other hemorrhoids; Z79.899 Other long term (current) drug therapy; Z88.0 Allergy status to penicillin; Z88.6 Allergy status to analgesic agent; I45.10 Unspecified right bundle-branch block; I08.0 Rheumatic disorders of both mitral and aortic valves; J45.909 Unspecified asthma, uncomplicated; E55.9 Vitamin D deficiency, unspecified

== ENCOUNTER → 2020-02-01 | Outpatient (CLI) | payer MEDICARE, OTHER ==
[~2020-02-01] MED LIST changes: +BISO5TAB14 PO; +D31000TA2 PO; +ELIQ2.5T PO; +GLUC500C37 PO; +SYNT75TA PO
--- NOTE | 2020-02-01 12:59 | REP ---
Clinical: Left lower extremity pain. Technique: AP, lateral, bilateral oblique and coned-down views of the lumbosacral spine. Findings: Advanced multilevel degenerative changes include endplate sclerosis, disc space narrowing, osteophytosis, and hypertrophic facet changes. No obvious acute fracture / compression injury or subluxation. Impression: Advanced multilevel degenerative spondylosis. Electronically Signed by John Baez MD 02/01/2020 12:50 P
== END ==
LOC: M ADAMS 12:16
PROVIDERS: ATTEND Physician Assistant Medical
DX: M47.897 Other spondylosis, lumbosacral region (principal); M79.652 Pain in left thigh
CPT/HCPCS: 72110; G0463

== ENCOUNTER → 2020-08-20 | Outpatient (REF) | payer MEDICARE, OTHER ==
[2020-08-21 13:00] LABS: HEMATOCRIT 42.2 % (36.0-47.0); HEMOGLOBIN 13.5 g/dl (12.0-15.5); MEAN CORPUSCULAR HEMOGLOBIN 30.8 pg (27.0-33.0); MEAN CORPUSCULAR VOLUME 96.3 fl (80.0-96.0); PLATELET COUNT, AUTOMATED 298 10^3/uL (150-450); RED BLOOD COUNT 4.38 10^6/uL (4.00-5.40)
[2020-08-21 13:27] LABS: BILIRUBIN,TOTAL 0.4 MG/DL (0.2-1.0); CALCIUM LEVEL 10.3 MG/DL (8.8-10.2); CHOLESTEROL RISK RATIO 4.488 (<5); CREATININE FOR GFR 1.25 MG/DL (0.55-1.30); FREE T4 1.05 NG/DL (0.76-1.46); GLOMERULAR FILTRATION RATE 43.4 (>32); POTASSIUM SERUM 5.2 MEQ/L (3.5-5.1); THYROID STIMULATING HORMONE 4.64 uIU/ML (0.358-3.740); TOTAL PROTEIN 7.6 GM/DL (6.4-8.2)
== END ==
LOC: M SFHCADAM 15:35
PROVIDERS: ATTEND Family Medicine
DX: I11.0 Hypertensive heart disease with heart failure (principal); I50.30 Unspecified diastolic (congestive) heart failure; E03.9 Hypothyroidism, unspecified; I48.91 Unspecified atrial fibrillation
CPT/HCPCS: 80053; 80061; 84439; 84443; 85027; G0463

== ENCOUNTER → 2021-02-14 | Outpatient (CLI) | payer MEDICARE, OTHER ==
--- NOTE | 2021-02-14 16:21 | REP ---
INDICATION: CHRONIC DIASTOLIC (CONGESTIVE) HEART FAILURE. COMPARISON: None. FINDINGS: There is global cardiomegaly. There is a single chamber bipolar pacemaker device in place. There is a subtle discoid opacity in the left mid lung zone.. The osseous structures are within normal limits. IMPRESSION: 1. Cardiomegaly. 2. Platelike atelectatic change in the left mid lung zone. <Electronically signed by Jude Avila > 02/14/21 [id number]
== END ==
LOC: M ADAMS 15:43
PROVIDERS: ATTEND Physician Assistant
DX: I51.7 Cardiomegaly (principal); R91.8 Other nonspecific abnormal finding of lung field; I50.32 Chronic diastolic (congestive) heart failure; Z95.0 Presence of cardiac pacemaker

== ENCOUNTER → 2021-02-14 | Outpatient (REF) | payer MEDICARE, OTHER ==
[2021-02-14 19:03] LABS: CALCIUM LEVEL 9.8 MG/DL (8.8-10.2); CREATININE FOR GFR 1.43 MG/DL (0.55-1.30); GLOMERULAR FILTRATION RATE 37.1 (>32); MAGNESIUM LEVEL 2.3 MG/DL (1.8-2.4); POTASSIUM SERUM 4.8 MEQ/L (3.5-5.1)
== END ==
LOC: M LABDRWAD 18:22
PROVIDERS: ATTEND Physician Assistant
DX: I11.0 Hypertensive heart disease with heart failure (principal); I50.32 Chronic diastolic (congestive) heart failure; R91.8 Other nonspecific abnormal finding of lung field; Z95.0 Presence of cardiac pacemaker

== ENCOUNTER → 2021-02-17 | Outpatient (REF) | payer MEDICARE, OTHER ==
[2021-02-17 16:59] LABS: HEMOGLOBIN 13.4 g/dl (12.0-15.5); MEAN CORPUSCULAR HEMOGLOBIN 30.5 pg (27.0-33.0); MEAN CORPUSCULAR HGB CONC 31.9 g/dl (32.0-36.5); MEAN CORPUSCULAR VOLUME 95.7 fl (80.0-96.0); PLATELET COUNT, AUTOMATED 284 10^3/uL (150-450); RED BLOOD COUNT 4.39 10^6/uL (4.00-5.40); WHITE BLOOD COUNT 8.5 10^3/uL (4.0-10.0)
[2021-02-17 17:37] LABS: ALBUMIN 3.7 GM/DL (3.2-5.2); BILIRUBIN,TOTAL 0.3 MG/DL (0.2-1.0); CALCIUM LEVEL 9.3 MG/DL (8.8-10.2); CHOLESTEROL RISK RATIO 4.512 (<5); CREATININE FOR GFR 1.46 MG/DL (0.55-1.30); FREE T4 1.05 NG/DL (0.76-1.46); GLOMERULAR FILTRATION RATE 36.2 (>32); POTASSIUM SERUM 5.2 MEQ/L (3.5-5.1); THYROID STIMULATING HORMONE 4.6 uIU/ML (0.358-3.740); TOTAL PROTEIN 7.3 GM/DL (6.4-8.2)
== END ==
LOC: M SFHCADAM 11:34
PROVIDERS: ATTEND Family Medicine
DX: I50.30 Unspecified diastolic (congestive) heart failure (principal); I11.0 Hypertensive heart disease with heart failure; E03.9 Hypothyroidism, unspecified

== ENCOUNTER → 2021-08-06 | Outpatient (REF) | payer MEDICARE, OTHER ==
[2021-08-06 18:46] LABS: ALBUMIN 3.6 GM/DL (3.2-5.2); BILIRUBIN,TOTAL 0.1 MG/DL (0.2-1.0); CALCIUM LEVEL 9.8 MG/DL (8.8-10.2); CREATININE FOR GFR 1.36 MG/DL (0.55-1.30); GLOMERULAR FILTRATION RATE 39.2 (>32); MAGNESIUM LEVEL 2.1 MG/DL (1.8-2.4); POTASSIUM SERUM 4.5 MEQ/L (3.5-5.1); TOTAL PROTEIN 7.3 GM/DL (6.4-8.2)
== END ==
LOC: M LABDRWAD 17:40
PROVIDERS: ATTEND Physician Assistant
DX: I11.0 Hypertensive heart disease with heart failure (principal); I50.9 Heart failure, unspecified

== ENCOUNTER → 2021-08-06 | Outpatient (REF) | payer MEDICARE, OTHER ==
[2021-08-06 18:24] LABS: HEMATOCRIT 39.2 % (36.0-47.0); HEMOGLOBIN 12.7 g/dl (12.0-15.5); MEAN CORPUSCULAR HEMOGLOBIN 30.6 pg (27.0-33.0); MEAN CORPUSCULAR HGB CONC 32.4 g/dl (32.0-36.5); MEAN CORPUSCULAR VOLUME 94.5 fl (80.0-96.0); PLATELET COUNT, AUTOMATED 305 10^3/uL (150-450); RED BLOOD COUNT 4.15 10^6/uL (4.00-5.40); WHITE BLOOD COUNT 10.6 10^3/uL (4.0-10.0)
[2021-08-06 18:51] LABS: ALBUMIN 3.6 GM/DL (3.2-5.2); BILIRUBIN,TOTAL 0.3 MG/DL (0.2-1.0); CALCIUM LEVEL 9.8 MG/DL (8.8-10.2); CREATININE FOR GFR 1.37 MG/DL (0.55-1.30); FREE T4 1.06 NG/DL (0.76-1.46); GLOMERULAR FILTRATION RATE 38.9 (>32); POTASSIUM SERUM 4.6 MEQ/L (3.5-5.1); THYROID STIMULATING HORMONE 2.84 uIU/ML (0.358-3.740); TOTAL PROTEIN 7.6 GM/DL (6.4-8.2)
== END ==
LOC: M SFHCADAM 14:23
PROVIDERS: ATTEND Family Medicine
DX: E03.9 Hypothyroidism, unspecified (principal); I50.30 Unspecified diastolic (congestive) heart failure; I48.91 Unspecified atrial fibrillation; I11.0 Hypertensive heart disease with heart failure
CPT/HCPCS: 36415; 80053; 83735; 83880; 84439; 84443; 85027; G0463

== ENCOUNTER → 2022-02-10 | Outpatient (REF) | payer MEDICARE, OTHER ==
[~2022-02-10] MED LIST changes: -D31000TA2 PO; +VITA100093 PO
[2022-02-10 16:04] LABS: HEMATOCRIT 39.7 % (36.0-47.0); HEMOGLOBIN 13.1 g/dl (12.0-15.5); MEAN CORPUSCULAR VOLUME 93.9 fl (80.0-96.0); PLATELET COUNT, AUTOMATED 299 10^3/uL (150-450); RED BLOOD COUNT 4.23 10^6/uL (4.00-5.40); WHITE BLOOD COUNT 8.8 10^3/uL (4.0-10.0)
[2022-02-10 19:40] LABS: ALBUMIN 3.7 GM/DL (3.2-5.2); BILIRUBIN,TOTAL 0.4 MG/DL (0.2-1.0); CALCIUM LEVEL 9.5 MG/DL (8.8-10.2); CHOLESTEROL RISK RATIO 3.809 (<5); CREATININE FOR GFR 1.58 MG/DL (0.55-1.30); FREE T4 1.25 NG/DL (0.76-1.46); MAGNESIUM LEVEL 1.9 MG/DL (1.8-2.4); POTASSIUM SERUM 4.3 MEQ/L (3.5-5.1); THYROID STIMULATING HORMONE 3.39 uIU/ML (0.358-3.740); TOTAL PROTEIN 7.5 GM/DL (6.4-8.2)
== END ==
LOC: M SFHCADAM 12:34
PROVIDERS: ATTEND Family Medicine
DX: E03.9 Hypothyroidism, unspecified (principal); I48.91 Unspecified atrial fibrillation; I50.30 Unspecified diastolic (congestive) heart failure; N18.32 Chronic kidney disease, stage 3b; I11.0 Hypertensive heart disease with heart failure

== ENCOUNTER → 2022-02-17 | Outpatient (CLI) | payer MEDICARE, OTHER | LOC: M ADAMS 16:06 | PROVIDERS: ATTEND Family Medicine | DX: M16.11 Unilateral primary osteoarthritis, right hip (principal) ==

== ENCOUNTER → 2022-03-19 | Outpatient (CLI) | payer MEDICARE, OTHER ==
[2022-03-19 17:30] LABS: HEMATOCRIT 38.4 % (36.0-47.0); HEMOGLOBIN 12.3 g/dl (12.0-15.5); MEAN CORPUSCULAR HEMOGLOBIN 30.2 pg (27.0-33.0); MEAN CORPUSCULAR VOLUME 94.3 fl (80.0-96.0); PLATELET COUNT, AUTOMATED 289 10^3/uL (150-450); RED BLOOD COUNT 4.07 10^6/uL (4.00-5.40); WHITE BLOOD COUNT 8.8 10^3/uL (4.0-10.0)
[2022-03-19 17:43] LABS: CALCIUM LEVEL 9.5 MG/DL (8.8-10.2); CREATININE FOR GFR 1.26 MG/DL (0.55-1.30); GLOMERULAR FILTRATION RATE 42.8 (>32); POTASSIUM SERUM 4.3 MEQ/L (3.5-5.1)
== END ==
LOC: M ADAMS 14:08
PROVIDERS: ATTEND Physician Assistant
DX: R06.02 Shortness of breath (principal)

== ENCOUNTER → 2022-08-19 | Outpatient (REF) | payer MEDICARE, OTHER ==
[2022-08-19 17:17] LABS: HEMATOCRIT 38.5 % (36.0-47.0); HEMOGLOBIN 12.1 g/dl (12.0-15.5); MEAN CORPUSCULAR HGB CONC 31.4 g/dl (32.0-36.5); MEAN CORPUSCULAR VOLUME 95.5 fl (80.0-96.0); PLATELET COUNT, AUTOMATED 277 10^3/uL (150-450); RED BLOOD COUNT 4.03 10^6/uL (4.00-5.40); WHITE BLOOD COUNT 8.6 10^3/uL (4.0-10.0)
[2022-08-19 17:27] LABS: ALBUMIN 3.6 G/DL (3.2-5.2); BILIRUBIN,TOTAL 0.3 MG/DL (0.3-1.2); CALCIUM LEVEL 9.9 MG/DL (8.3-10.6); CREATININE FOR GFR 1.29 MG/DL (0.55-1.30); GLOMERULAR FILTRATION RATE 41.6 (>32); POTASSIUM SERUM 5.1 MMOL/L (3.5-5.1); TOTAL PROTEIN 7.3 G/DL (5.7-8.2)
[2022-08-19 17:29] LABS: FREE T4 1.25 NG/DL (0.89-1.76); THYROID STIMULATING HORMONE 3.243 uIU/ML (0.55-4.78)
== END ==
LOC: M SFHCADAM 11:44
PROVIDERS: ATTEND Family Medicine
DX: I48.91 Unspecified atrial fibrillation (principal); E03.9 Hypothyroidism, unspecified; I11.0 Hypertensive heart disease with heart failure; I50.30 Unspecified diastolic (congestive) heart failure; E55.9 Vitamin D deficiency, unspecified; Z79.899 Other long term (current) drug therapy

== ENCOUNTER → 2023-01-27 | Outpatient (REF) | payer MEDICARE, OTHER ==
[2023-01-27 16:38] LABS: CALCIUM LEVEL 9.9 MG/DL (8.3-10.6); CREATININE FOR GFR 1.07 MG/DL (0.55-1.30); GLOMERULAR FILTRATION RATE 51.6 (>32); POTASSIUM SERUM 4.5 MMOL/L (3.5-5.1)
== END ==
LOC: M SFHCADAM 13:56
PROVIDERS: ATTEND Family Medicine
DX: I11.0 Hypertensive heart disease with heart failure (principal); N18.32 Chronic kidney disease, stage 3b

== ENCOUNTER → 2023-02-24 | Outpatient (REF) | payer MEDICARE, OTHER ==
[2023-02-24 17:00] LABS: CALCIUM LEVEL 9.9 MG/DL (8.3-10.6); CREATININE FOR GFR 1.19 MG/DL (0.55-1.30); GLOMERULAR FILTRATION RATE 45.6 (>32); POTASSIUM SERUM 5.3 MMOL/L (3.5-5.1)
== END ==
LOC: M SFHCADAM 15:21
PROVIDERS: ATTEND Family Medicine
DX: I13.0 Hypertensive heart and chronic kidney disease with heart failure and stage 1 through stage 4 chronic kidney disease, or unspecified chronic kidney disease (principal); N18.32 Chronic kidney disease, stage 3b; I50.9 Heart failure, unspecified

== ENCOUNTER → 2023-07-05 | Outpatient (REF) | payer MEDICARE, OTHER ==
[2023-07-05 16:39] LABS: HEMATOCRIT 42.6 % (36.0-47.0); HEMOGLOBIN 13.8 g/dl (12.0-15.5); MEAN CORPUSCULAR HEMOGLOBIN 31.1 pg (27.0-33.0); MEAN CORPUSCULAR HGB CONC 32.4 g/dl (32.0-36.5); MEAN CORPUSCULAR VOLUME 95.9 fl (80.0-96.0); PLATELET COUNT, AUTOMATED 269 10^3/uL (150-450); RED BLOOD COUNT 4.44 10^6/uL (4.00-5.40); WHITE BLOOD COUNT 9.1 10^3/uL (4.0-10.0)
[2023-07-05 17:12] LABS: CALCIUM LEVEL 10.1 MG/DL (8.3-10.6); CREATININE FOR GFR 1.17 MG/DL (0.55-1.30); GLOMERULAR FILTRATION RATE 46.5 (>32)
== END ==
LOC: M SFHCADAM 13:42
PROVIDERS: ATTEND Family Medicine
DX: I13.0 Hypertensive heart and chronic kidney disease with heart failure and stage 1 through stage 4 chronic kidney disease, or unspecified chronic kidney disease (principal); N18.32 Chronic kidney disease, stage 3b; I50.30 Unspecified diastolic (congestive) heart failure

== ENCOUNTER → 2023-08-18 | Outpatient (CLI) | payer MEDICARE, OTHER | LOC: M SOG 08:07 | PROVIDERS: ATTEND Physician Assistant | DX: M25.561 Pain in right knee (principal); Z53.9 Procedure and treatment not carried out, unspecified reason ==

== ENCOUNTER → 2023-08-26 | Outpatient (CLI) | payer MEDICARE, OTHER | LOC: M SOG 14:40 | PROVIDERS: ATTEND Physician Assistant | DX: M25.561 Pain in right knee (principal) ==

== ENCOUNTER → 2023-08-27 | Outpatient (REF) | payer MEDICARE, OTHER ==
[2023-08-27 13:48] LABS: CALCIUM LEVEL 8.9 MG/DL (8.3-10.6); CREATININE FOR GFR 1.24 MG/DL (0.55-1.30); FREE T4 1.24 NG/DL (0.89-1.76); GLOMERULAR FILTRATION RATE 43.5 (>32); POTASSIUM SERUM 4.3 MMOL/L (3.5-5.1); THYROID STIMULATING HORMONE 3.386 uIU/ML (0.55-4.78); TOTAL 25(OH) VITAMIN D 41.6 NG/ML (20.0-100.0)
== END ==
LOC: M SFHCADAM 10:37
PROVIDERS: ATTEND Family Medicine
DX: E03.9 Hypothyroidism, unspecified (principal); E55.9 Vitamin D deficiency, unspecified; N18.32 Chronic kidney disease, stage 3b

== ENCOUNTER → 2023-12-10 | Outpatient (CLI) | payer MEDICARE, OTHER | LOC: M SOG 07:55 | PROVIDERS: ATTEND Physician Assistant | DX: M25.551 Pain in right hip (principal) ==

== ENCOUNTER → 2024-01-25 | Outpatient (REF) | payer MEDICARE, OTHER ==
[2024-01-25 18:28] LABS: HEMATOCRIT 41.2 % (36.0-47.0); HEMOGLOBIN 13.2 g/dl (12.0-15.5); MEAN CORPUSCULAR HEMOGLOBIN 30.8 pg (27.0-33.0); PLATELET COUNT, AUTOMATED 266 10^3/uL (150-450); RED BLOOD COUNT 4.29 10^6/uL (4.00-5.40)
[2024-01-25 18:46] LABS: ALBUMIN 3.5 G/DL (3.2-5.2); BILIRUBIN,TOTAL 0.4 MG/DL (0.3-1.2); CALCIUM LEVEL 9.6 MG/DL (8.3-10.6); CHOLESTEROL RISK RATIO 3.96 (<5); CREATININE FOR GFR 1.15 MG/DL (0.55-1.30); FREE T4 1.36 NG/DL (0.89-1.76); GLOMERULAR FILTRATION RATE 47.4 (>32); HDL CHOLESTEROL 40.6 MG/DL (>40); NON-HDL-C 120.4 MG/DL; POTASSIUM SERUM 4.4 MMOL/L (3.5-5.1); THYROID STIMULATING HORMONE 2.178 uIU/ML (0.55-4.78); TOTAL 25(OH) VITAMIN D 41.2 NG/ML (20.0-100.0); TOTAL PROTEIN 6.7 G/DL (5.7-8.2)
== END ==
LOC: M SFHCADAM 14:32
PROVIDERS: ATTEND Family Medicine
DX: E03.9 Hypothyroidism, unspecified (principal); N18.32 Chronic kidney disease, stage 3b; I11.0 Hypertensive heart disease with heart failure; I48.91 Unspecified atrial fibrillation; E55.9 Vitamin D deficiency, unspecified

== ENCOUNTER → 2024-02-16 | Outpatient (CLI) | payer MEDICARE, OTHER ==
[~2024-02-16] MED LIST changes: +ISOVUE-300 61% 100ML VIAL As Ordered ONE; +methylPREDNISolone SUSP 40MG/ML 1ML VIAL (DEPO MEDROL) As Ordered ONE
== END ==
LOC: M RAD 13:56
PROVIDERS: ATTEND Physician Assistant
DX: M16.11 Unilateral primary osteoarthritis, right hip (principal)
CPT/HCPCS: 20610; 77002; J0665; J1010; Q9967

== ENCOUNTER → 2024-03-06 | Outpatient (REF) | payer MEDICARE, OTHER ==
[~2024-03-06] MED LIST changes: -ISOVUE-300 61% 100ML VIAL As Ordered ONE; -methylPREDNISolone SUSP 40MG/ML 1ML VIAL (DEPO MEDROL) As Ordered ONE
== END ==
LOC: M SFHCADAM 11:37
PROVIDERS: ATTEND Family Medicine
DX: R10.9 Unspecified abdominal pain (principal); Z53.9 Procedure and treatment not carried out, unspecified reason

== ENCOUNTER → 2024-03-06 | Outpatient (CLI) | payer MEDICARE, OTHER | LOC: M ADAMS 11:40 | PROVIDERS: ATTEND Family Medicine | DX: M51.36 Other intervertebral disc degeneration, lumbar region (principal); M51.34 Other intervertebral disc degeneration, thoracic region; M85.88 Other specified disorders of bone density and structure, other site; R10.9 Unspecified abdominal pain ==

== ENCOUNTER → 2024-03-07 | Outpatient (REF) | payer MEDICARE, OTHER ==
[2024-03-07 18:56] LABS: APPEARANCE, URINE CLEAR (CLEAR); BACTERIA, URINE AUTO NEGATIVE (NEGATIVE); BILIRUBIN, URINE AUTO NEGATIVE (NEGATIVE); BLOOD, URINE BLOOD NEGATIVE (NEGATIVE); COLOR, URINE YELLOW (YELLOW); GLUCOSE, URINE (UA) AUTO 2+ mg/dL (NEGATIVE); KETONE, URINE AUTO NEGATIVE (NEGATIVE); LEUKOCYTE ESTERASE, URINE AUTO TRACE (NEGATIVE); NITRITE, URINE AUTO NEGATIVE (NEGATIVE); PROTEIN, URINE AUTO NEGATIVE (NEGATIVE); RBC, URINE AUTO 0 /HPF (0-3); SPECIFIC GRAVITY URINE AUTO 1.019 (1.002-1.035); SQUAMOUS EPITHELIAL CELL UR AU 0 /HPF (0-6); UROBILINOGEN, URINE AUTO 0.2 mg/dL (0.0-2.0); WBC, URINE AUTO 6 /HPF (0-3)
== END ==
LOC: M SFHCADAM 18:03
PROVIDERS: ATTEND Family Medicine
DX: R10.9 Unspecified abdominal pain (principal)

== ENCOUNTER → 2024-04-14 | Outpatient (CLI) | payer MEDICARE, OTHER | LOC: M SOG 08:50 | PROVIDERS: ATTEND Orthopaedic Surgery | DX: M16.11 Unilateral primary osteoarthritis, right hip (principal); M17.11 Unilateral primary osteoarthritis, right knee ==

== ENCOUNTER → 2024-07-07 | Outpatient (CLI) | payer MEDICARE, OTHER ==
[~2024-07-07] MED LIST changes: +BUDE180A2 PO; -BUDE180INH PO; -LIDO1CRE2 TOP; +LIDO4CRE12 TOP
== END ==
LOC: M PLAIMG 14:13
PROVIDERS: ATTEND Registered Nurse
DX: I08.3 Combined rheumatic disorders of mitral, aortic and tricuspid valves (principal); I27.20 Pulmonary hypertension, unspecified

== ENCOUNTER → 2024-07-18 | Outpatient (REF) | payer MEDICARE, OTHER ==
[2024-07-18 17:56] LABS: HEMATOCRIT 43.5 % (36.0-47.0); HEMOGLOBIN 13.9 g/dl (12.0-15.5); MEAN CORPUSCULAR VOLUME 97.1 fl (80.0-96.0); PLATELET COUNT, AUTOMATED 283 10^3/uL (150-450); RED BLOOD COUNT 4.48 10^6/uL (4.00-5.40); WHITE BLOOD COUNT 9.5 10^3/uL (4.0-10.0)
[2024-07-18 17:58] LABS: ALBUMIN 3.6 G/DL (3.2-5.2); BILIRUBIN,TOTAL 0.3 MG/DL (0.3-1.2); CALCIUM LEVEL 10.4 MG/DL (8.3-10.6); CREATININE FOR GFR 1.21 MG/DL (0.55-1.30); GLOMERULAR FILTRATION RATE 44.6 (>32); POTASSIUM SERUM 4.4 MMOL/L (3.5-5.1); TOTAL PROTEIN 7.6 G/DL (5.7-8.2)
[2024-07-18 18:00] LABS: FREE T4 1.39 NG/DL (0.89-1.76); THYROID STIMULATING HORMONE 3.215 uIU/ML (0.55-4.78)
== END ==
LOC: M SFHCADAM 13:36
PROVIDERS: ATTEND Family Medicine
DX: N18.32 Chronic kidney disease, stage 3b (principal); E03.9 Hypothyroidism, unspecified; I50.30 Unspecified diastolic (congestive) heart failure

== ENCOUNTER → 2024-12-21 | Outpatient (REF) | payer MEDICARE, OTHER ==
[2024-12-21 18:19] LABS: HEMATOCRIT 39.5 % (36.0-47.0); HEMOGLOBIN 12.6 g/dl (12.0-15.5); MEAN CORPUSCULAR HEMOGLOBIN 31.5 pg (27.0-33.0); MEAN CORPUSCULAR HGB CONC 31.9 g/dl (32.0-36.5); MEAN CORPUSCULAR VOLUME 98.8 fl (80.0-96.0); PLATELET COUNT, AUTOMATED 254 10^3/uL (150-450); WHITE BLOOD COUNT 11.8 10^3/uL (4.0-10.0)
[2024-12-21 18:21] LABS: ALBUMIN 3.2 G/DL (3.2-5.2); BILIRUBIN,TOTAL 0.3 MG/DL (0.3-1.2); CALCIUM LEVEL 9.6 MG/DL (8.3-10.6); CHOLESTEROL RISK RATIO 3.43 (<5); CREATININE FOR GFR 1.17 MG/DL (0.55-1.30); GLOMERULAR FILTRATION RATE 44.6 (>32); HDL CHOLESTEROL 41.9 MG/DL (>40); LDL CHOLESTEROL 68.1 MG/DL (<100); NON-HDL-C 102.1 MG/DL; POTASSIUM SERUM 3.7 MMOL/L (3.5-5.1); THYROID STIMULATING HORMONE 3.117 uIU/ML (0.55-4.78); TOTAL PROTEIN 6.8 G/DL (5.7-8.2)
[2024-12-21 18:22] LABS: FREE T4 1.39 NG/DL (0.89-1.76)
[2024-12-21 18:31] LABS: PROCALCITONIN 0.17 ng/ml
[2024-12-21 19:30] LABS: HEMOGLOBIN A1c 5.2 % (4.0-6.0)
== END ==
LOC: M SFHCADAM 13:29
PROVIDERS: ATTEND Family Medicine
DX: L03.114 Cellulitis of left upper limb (principal); I48.91 Unspecified atrial fibrillation; N18.32 Chronic kidney disease, stage 3b; E03.9 Hypothyroidism, unspecified; R73.9 Hyperglycemia, unspecified; I50.30 Unspecified diastolic (congestive) heart failure